=== PATIENT | female | born 1990 | race Caucasian/White ===

== ENCOUNTER → 2017-10-09 | Outpatient (CLI) | payer BC ==
[~2017-10-09] MED LIST: ACET-1256 PO
== END | disposition home or self-care (01) ==
LOC: C.PAPS 14:15
PROVIDERS: ATTEND Obstetrics & Gynecology
DX: Z34.01 Encounter for supervision of normal first pregnancy, first trimester (principal)

== ENCOUNTER → 2017-10-09 | Outpatient (CLI) | payer BC | END | disposition home or self-care (01) | LOC: C.LABSPEC 13:32 | PROVIDERS: ATTEND Obstetrics & Gynecology | DX: Z34.01 Encounter for supervision of normal first pregnancy, first trimester (principal) ==

== ENCOUNTER → 2017-10-16 | Outpatient (CLI) | payer BC ==
[2017-10-16 12:10] LABS: BASO % 0.1 %; BASO ABS # 0.01 K/uL (0-0.2); EOS % 1.3 %; EOS ABS # 0.13 K/uL (0-0.5); HEMOGLOBIN 12.4 g/dL (12.0-16.0); IG# 0.05 K/uL (0.00-0.02); LYMPH % 19.9 %; LYMPH ABS # 1.98 K/uL (1.2-3.4); MEAN CELL VOLUME 87.6 fL (80-100); MEAN CORPUSCULAR HEMOGLOBIN 30.2 pg (25-34); MEAN CORPUSCULAR HGB CONC 34.4 g/dl (32-36); MEAN PLATELET VOLUME 10.8 fL (7.4-10.4); MONO % 5.9 %; MONO ABS # 0.59 K/uL (0.11-0.59); NEUT % 72.3 %; NEUT ABS # 7.18 K/uL (1.4-6.5); PLATELET COUNT 210 K/uL (130-400); RED CELL DISTRIBUTION WIDTH CV 13.1 % (11.5-14.5); RED CELL DISTRIBUTION WIDTH SD 42.3 fL (36.4-46.3); WHITE BLOOD COUNT 9.94 K/uL (4.8-10.8)
== END | disposition home or self-care (01) ==
LOC: C.LAB1850 10:51
PROVIDERS: ATTEND Obstetrics & Gynecology
DX: Z34.01 Encounter for supervision of normal first pregnancy, first trimester (principal)

== ENCOUNTER → 2017-11-27 | Outpatient (CLI) | payer BC | END | disposition home or self-care (01) | LOC: C.LAB1850 10:13 | PROVIDERS: ATTEND Obstetrics & Gynecology | DX: Z34.02 Encounter for supervision of normal first pregnancy, second trimester (principal) ==

== ENCOUNTER → 2018-04-09 | Outpatient (CLI) | payer BC | END | disposition home or self-care (01) | LOC: C.LABSPEC 11:30 | PROVIDERS: ATTEND Obstetrics & Gynecology | DX: Z34.03 Encounter for supervision of normal first pregnancy, third trimester (principal) ==

== ENCOUNTER 2018-05-05 19:49 | Outpatient (CLI) | payer BC ==
[~2018-05-05] VITALS: Ht 165.1 cm; Wt 93.4 kg
[2018-05-05] MEDS ORDERED: SERT25TA PO (20:26)
[2018-05-05] MEDS ORDERED: INSU1INJ SC (20:26)
[2018-05-05] MEDS ORDERED: PRENTAB26 PO (20:26)
[2018-05-05] MEDS ORDERED: HMLI7525 SC (20:26)
[2018-05-05 20:27] VITALS: Ht 165.1 cm; Wt 93.4 kg
== END 2018-05-05 21:32 ==
LOC: C.OPB 19:49 → C.LD 19:49 → C.OPB 21:32
PROVIDERS: ATTEND Obstetrics & Gynecology
DX: O34.43 Maternal care for other abnormalities of cervix, third trimester (principal); O24.414 Gestational diabetes mellitus in pregnancy, insulin controlled; Z3A.40 40 weeks gestation of pregnancy

== ENCOUNTER 2019-06-27 07:26 | Inpatient (IN) ==
[2019-06-27] MEDS ORDERED: OXYTOCIN 30 UNITS/500 ML BAG IV PRN ×3 (07:30→16:46)
[2019-06-27 08:08] LABS: Hematocrit (blood only) 36.5 % (37-47); Hemoglobin 12.4 g/dL (12.0-16.0); Mean Corpuscular Hemoglobin 29.2 pg (25-34); Mean Corpuscular Volume 86.1 fL (80-100); Mean Platelet Volume 12.6 fL (7.4-10.4); Platelet Count 153 K/uL (130-400); RDW Coefficient of Variation 13.5 % (11.5-14.5); RDW Standard Deviation 42.6 fL (36.4-46.3); Red Blood Count 4.24 M/uL (4.2-5.4); White Blood Count 8.56 K/uL (4.8-10.8)
--- NOTE | 2019-06-27 08:40 | History & Physical Report ---
Date of Service June 27, 2019 Assessment & Plan (1) : 29-year-old here for induction of labor at 39 weeks 1 days, complicated by IDGDM, prior PPH, anxiety and depression, prior repaired rectovaginal fistula with a delivery in 2018. - GBS negative, Blood Type O+ - SVE: 12/07/-3 - FHT: Category 1 tracing - Induction with Oxytocin starting @ 2 milliunits/min. increasing by 2 milliunits/min. to a maximum of 30 milliunits/min. History of Present Illness Chief Complaint: IOL Primary Care Provider: Anna Marie Rodarte DO Dawn Nguyen is here for induction of labor. She did not have a Rodriguez placed yesterday because she was already 3 cm dilated. She did not feel any contractions at this time. Today she has just started feeling contractions that she describes as, "slightly painful with tightness all over her belly." She has not had any bleeding, LOF, or lost her mucus plug. She is feeling good movement. Partner is here with her. No questions or concerns this morning. is complicated by insulin dependant gestational diabetes mellitus. Patient has anxiety and depression managed with Sertraline. Patient also has a history of prior post hemorrhage, as well as a history of rectovaginal fistula after delivery in 2018, repaired. Allergies Allergy/AdvReac Type Severity Reaction Status Date / Time No Known Drug Allergies Allergy none Verified 06/27/19 07:54 Patient History Medical History Gestational diabetes (Acute) hemorrhage April 2018 following vaginal delivery & rectovaginal fistula. Given 2 PRBCs at that time. History of anxiety disorder History of depression Surgical History Rectovaginal fistula following vaginal delivery (April 2018) repaired (surgical) S/P wisdom tooth extraction Family History Mother Depression Grandmother (Maternal) Diabetes Father Hypertension Thyroid disease Dyslipidemia Grandfather (Paternal) Hypertension Thyroid disease Dyslipidemia Social History Preferred Language: Icelandic Communication Ability: Effective Beauty Operator Required: No Beliefs That Will Affect Care: None marital status: Current Living Situation: Family current occupational status: employed Other Information That Helps Us Care for You: No Feels Safe at Home: Yes Safety Concerns: Feels Safe At This Time Smoking Status: Never smoker Do You Dip or Chew Tobacco: No ; Second Hand Exposure: No ; Tobacco Cessation Education Requested by Patient: No Hx Alcohol Use: No Hx Substance Use: No Review of Systems Denies fever, chills, sweats Denies shortness of breath, difficulty breathing, chest pain, palpitations, chest pressure. Denies breast pain. Denies dysuria. Denies headache, RUQ, vision changes. Physical Exam Physical Exam: General: Alert, oriented. No acute distress. Cardiac: Regular rate and rhythm, no murmurs/rubs/gallops. Respiratory: Clear to auscultation anterior and posteriorly, no wheezes/rales/rhonchi. No increased work of breathing. Symmetrical chest rise. No respiratory distress. Abdomen: Soft, nontender. Bowel sounds present. Lower Extremities: No lower extremity edema or swelling. No deep calf pain. Marva's negative bilaterally. : SVE: 3cm/30%/-3 Results & Data Vital Signs (Past 12 Hours) Vital Signs Temp Pulse Resp BP 06/27/19 07:46 36.7 C 14 06/27/19 07:33 107 H 121/74 RPR: non reactive G/C: not detected HepBs antigen: negative HIV: negative Rubella: immune Monitoring External Monitor - Baseline rate: 140, moderate accelerations and accelerations - no late decelerations, no variable decelerations - category 1 tracing Tocodynamometer - contractions q1-2 minutes - approx. 100 MVU's Supervising Physician Co-Signing Physician Notes Patient seen and evaluated and agree with the above findings and plan. Will start induction with pitocin and AROM when able. Resident Activity Tracking Resident Involvement: Resident Care Provided Care Provided: OB Delivery (1) Weeks of gestation: 28 weeks Qualified Code(s): Z3A.28 - 28 weeks gestation of
[2019-06-27] MEDS: LACTATED RINGER'S 1,000 ML IV PRN ×2 (08:48→11:32)
[2019-06-27] MEDS ORDERED: BUPIVACAINE 0.25% 30 ML VIAL ONE (10:42)
[2019-06-27] MEDS ORDERED: fentaNYL 2MCG/ML ROPIV 1.25MG/ML 100 ML BAG EPI ONE (10:42)
[2019-06-27] MEDS ORDERED: fentaNYL citrate 100 MCG/2 ML VIAL ONE (10:42)
[2019-06-27] MEDS ORDERED: ePHEDrine sulfate 50 MG/ML AMP ONE (10:42)
--- NOTE | 2019-06-27 10:59 | Anesthesiology Consultation ---
Date of Service June 27, 2019 Assessment & Plan Chart Review Chart Review: Acceptable Risk for Surgery, Patient NOT seen in Pre Admission Testing and Acceptable Risk for Labor Epidural Consults Requested none ASA ASA3 Proposed Anesthesia Anesthesia Type: General and Labor Epidural Risk / Benefits Reviewed With: PT / POA / Parent / Guardian, Accepts Plan and Informed Consent Obtained History Surgery Operation Date: 06/27/19 09:10 Proposed Procedures p Section in LD - Bear Kan MD Height/Weight Height: 5 ft 5 in Weight: 94.801 kg Allergies Allergy/AdvReac Type Severity Reaction Status Date / Time No Known Drug Allergies Allergy none Verified 06/27/19 07:54 Medications Home Medications Medication Instructions Recorded Confirmed Last Taken sertraline 50 mg PO QPM 01/30/19 06/27/19 06/26/19 22:00 acetone (urine) test strips #25 ea 04/07/19 06/26/19 Unknown pen needle, diabetic 32 gauge x #30 ea 05/15/19 06/26/19 Unknown " insulin NPH isoph U-100 human 25 units SQ HS 06/25/19 06/27/19 06/25/19 22:00 [Humulin N NPH Insulin KwikPen] 21-iron fu-folic acid 1 tab PO DAILY 06/25/19 06/27/19 06/26/19 22:00 [ Complete] Active Medications Generic Name Dose Route Start Last Admin Trade Name Freq PRN Reason Stop Dose Admin Lactated Ringer's 1,000 mls @ 125 mls/hr 06/27/19 07:30 06/27/19 10:26 Lr IV 06/29/19 07:29 999 mls/hr .Q8H PRN Infusion L&D Protocol Protocol Oxytocin 30 units in 500 mls @ 4 mls/hr 06/27/19 08:59 06/27/19 10:26 Pitocin IV 06/29/19 08:58 0.24 units/hr .Q24H PRN 4 mls/hr Labor Induction/Augmentation Titration Protocol 0.24 UNITS/HR NPO Date Last Intake of Fluids: 06/27/19 Time Last Intake of Fluids: 06:30 Date Last Intake of Solids: 06/27/19 Time Last Intake of Solids: 06:30 Past Medical History Medical History Gestational diabetes (Acute) hemorrhage April 2018 following vaginal delivery & rectovaginal fistula. Given 2 PRBCs at that time. History of anxiety disorder History of depression Exercise / Class Metabolic Activity III < 4 Walking/Shop/Light housework Past Family History Family History Mother Depression Grandmother (Maternal) Diabetes Father Hypertension Thyroid disease Dyslipidemia Grandfather (Paternal) Hypertension Thyroid disease Dyslipidemia Past Surgical History Surgical History Rectovaginal fistula following vaginal delivery (April 2018) repaired (surgical) S/P wisdom tooth extraction Past Anesthesia History No Hx of Anesthesia Complications and No Family Hx of Anesthesia Complications History of PONV No Hx of PONV and No Hx of Motion Sickness Social History Smoking Status: Never smoker Do You Dip or Chew Tobacco: No Hx Alcohol Use: No Alcohol type: beer alcohol intake frequency: a few times a month Hx Substance Use: No substance use type: does not use Physical Exam Vital Signs Last Vital Signs Temp 36.7 C 06/27/19 07:46 Pulse 78 06/27/19 10:51 Resp 14 06/27/19 07:46 BP 126/75 06/27/19 10:26 Pulse Ox 99 06/27/19 10:51 Constitutional + obese ENMT Mouth: no dentition abnormality Thyromental Distance: < 3.5 Finger Breadths Mallampati Class: II Neck normal visual inspection and trachea midline; neck extension not limited Respiratory normal respiratory effort Auscultation: lungs clear to auscultation bilaterally Cardiovascular Rate/Rhythm: regular rate and regular rhythm Heart Sounds: no murmur Musculoskeletal Spine: lumbar spine normal to inspection; normal cervical ROM Neurologic moves all extremities Motor/Sensory: no sensory deficit Psychiatric Orientation: alert; + not oriented x 3 Testing Laboratory Results 06/27/19 07:46
[2019-06-27] MEDS ORDERED: NALOXONE HCL 0.4 MG/1 ML VIAL/CARP IV PRN (11:26)
[2019-06-27] MEDS ORDERED: ONDANSETRON INJ 2 MG/ML 2 ML VIAL IV PRN (11:26)
[2019-06-27] MEDS ORDERED: ePHEDrine sulfate 50 MG/ML AMP IV PRN (11:26)
[2019-06-27] MEDS ORDERED: PROMETHAZINE HCL 25 MG in SODIUM CHLORIDE 0.9% 50 ML IV PRN (11:26)
[2019-06-27] MEDS ORDERED: fentaNYL 2MCG/ML ROPIV 1.25MG/ML 100 ML BAG EPI PRN (11:26)
[2019-06-27] MEDS ORDERED: NALOXONE HCL 1 MG in SODIUM CHLORIDE 0.9% 1000ML 1,000 ML IV PRN (11:26)
[2019-06-27] MEDS ORDERED: NALBUPHINE HCL INJ 10 MG/ML AMP IV PRN (11:26)
[2019-06-27] MEDS ORDERED: DiphenhydrAMINE HCL 50 MG/ML VIAL IV PRN (11:26)
--- NOTE | 2019-06-27 11:52 | Labor Progress Brief Note ---
Date of Service June 27, 2019 Subjective Reason For Note: Routine Evaluation Assessment & Plan (1) 39 weeks gestation of : AROM bloody, Continue pitocin, Cat 1 tracing. (2) Insulin controlled gestational diabetes mellitus (GDM) in third trimester: Physical Exam Genitourinary: OB Exam Abdomen: + vertex Manual OB Exam: + cervical dilation 4 cm, + cervical effacement 50%, + station -2 and + amniotic fluid bloody OB Exam Monitor Tracing: + external FHT monitor used, + external uterine monitor used, + category I and + normal FHT variability; no late decelerations present and no variable decelerations Results & Data Vital Signs (Past 12 Hours) Vital Signs Temp Pulse Resp BP Pulse Ox 06/27/19 11:39 98 H 114/66 06/27/19 11:36 100 H 93 06/27/19 11:33 88 120/58 L 06/27/19 11:31 94 H 93 06/27/19 11:30 75 94 06/27/19 11:28 54 L 116/62 06/27/19 11:26 55 L 99/54 L 95 06/27/19 11:24 53 L 62/31 L 06/27/19 11:23 64 57/28 L 06/27/19 11:21 88 96 06/27/19 11:20 98 H 104/55 L 06/27/19 11:18 93 H 115/58 L 06/27/19 11:16 81 131/84 98 06/27/19 11:11 88 96 06/27/19 11:06 86 99 06/27/19 11:01 83 99 06/27/19 10:56 73 99 06/27/19 10:51 78 99 06/27/19 10:26 78 126/75 06/27/19 09:26 85 122/73 06/27/19 07:46 36.7 C 14 06/27/19 07:33 107 H 121/74
--- NOTE | 2019-06-27 15:08 | Labor Progress Brief Note ---
Date of Service June 27, 2019 Subjective Reason For Note: Routine Evaluation Current Pain Level(1-10): 0 Doing well, feeling contractions, good movement. Assessment & Plan (1) : 29-year-old here for induction of labor at 39 weeks 1 days, complicated by IDGDM, prior PPH, anxiety and depression, prior repaired rectovaginal fistula with a delivery in 2018. - Category 1 tracing - ROM at 11:15 AM - SVE: 50/-2 - GBS negative, Blood Type O+ - Induction with Oxytocin starting @ 2 milliunits/min. increasing by 2 milliunits/min. to a maximum of 30 milliunits/min. - pain well controlled with epidural. Weeks of gestation: 28 weeks Qualified Code(s): Z3A.28 - 28 weeks gestation of Physical Exam Physical Exam: General: Alert, oriented. No acute distress. Respiratory: No increased work of breathing. Symmetric chest rise. No respiratory distress. SVE: 50/-2 Fetus: - baseline rate: 155 BPM - variability: minimal - no late decelerations or variable decelerations - Category 1 tracing Results & Data Vital Signs (Past 12 Hours) Vital Signs Temp Pulse Resp BP Pulse Ox 06/27/19 15:00 36.7 C 93 H 18 114/70 06/27/19 14:56 96 H 118/72 06/27/19 14:53 96 H 97 06/27/19 14:38 105 H 97 06/27/19 14:24 94 H 20 110/66 06/27/19 14:23 99 H 98 06/27/19 14:09 93 H 125/83 06/27/19 14:08 91 H 98 06/27/19 13:54 85 131/78 06/27/19 13:53 98 H 98 06/27/19 13:45 20 06/27/19 13:40 75 128/76 06/27/19 13:38 79 99 06/27/19 13:24 75 18 122/73 06/27/19 13:23 78 98 06/27/19 13:11 79 121/59 L 06/27/19 13:08 76 98 06/27/19 12:55 81 111/57 L 06/27/19 12:54 36.7 C 82 22 114/55 L 06/27/19 12:53 88 98 06/27/19 12:40 96 H 24 114/62 06/27/19 12:38 96 H 95 06/27/19 12:24 96 H 109/57 L 06/27/19 12:23 92 H 96 06/27/19 12:10 93 H 16 116/63 06/27/19 12:08 94 H 96 06/27/19 11:54 91 H 128/71 06/27/19 11:53 88 20 95 06/27/19 11:39 98 H 114/66 06/27/19 11:36 100 H 93 06/27/19 11:33 88 20 120/58 L 06/27/19 11:31 94 H 93 06/27/19 11:30 75 94 06/27/19 11:28 54 L 116/62 06/27/19 11:26 55 L 99/54 L 95 06/27/19 11:24 53 L 62/31 L 06/27/19 11:23 64 57/28 L 06/27/19 11:21 88 96 06/27/19 11:20 98 H 104/55 L 06/27/19 11:18 93 H 115/58 L 06/27/19 11:16 81 131/84 98 06/27/19 11:11 88 96 06/27/19 11:06 86 99 06/27/19 11:01 83 99 06/27/19 10:56 73 99 06/27/19 10:51 78 99 06/27/19 10:50 36.7 C 20 06/27/19 10:26 78 126/75 06/27/19 09:26 85 122/73 06/27/19 07:46 36.7 C 14 06/27/19 07:33 107 H 121/74 Resident Activity Tracking Resident Involvement: Resident Care Provided Care Provided: OB Delivery
[2019-06-27] MEDS ORDERED: SUPERCREAM 0.870% 15 GM JAR EXT PRN (16:46)
[2019-06-27] MEDS ORDERED: ACETAMINOPHEN 325 MG TAB PO PRN (16:46)
[2019-06-27] MEDS ORDERED: BENZOCAINE 20% AER SPR 82.5 GM CAN EXT PRN (16:46)
[2019-06-27] MEDS ORDERED: DIPHTHERIA/TETANUS/PERTUSSIS 0.5 ML SYR/VIAL IM ONE (16:46)
[2019-06-27] MEDS ORDERED: HYDROCORTISONE ACETATE 25 MG SUPP PR PRN (16:46)
--- NOTE | 2019-06-27 17:15 | Anesthesia Procedure Note ---
Date of Service June 27, 2019 Anesthesia Post Epidural Note Vital Signs Vital Signs: Temp Pulse Resp BP Pulse Ox 36.7 C 92 H 18 139/74 97 06/27/19 15:00 06/27/19 17:01 06/27/19 16:46 06/27/19 17:01 06/27/19 16:38 Pain Intensity Left Buttock: Pain Intensity: 3 Notes Mental Status: alert / awake / arousable Nausea / Vomiting: adequately controlled Pain: adequately controlled Airway Patency, RR, SpO2: stable & adequate BP & HR: stable & adequate Hydration State: stable & adequate Neuraxial Anesthesia: was administered and sensory block is resolving Anesthetic Complications: no major complications apparent Epidural: Removed without complications and With tip intact
--- NOTE | 2019-06-27 18:14 | Delivery Summary ---
DATE OF OPERATION: 06/27/2019 PROCEDURE: Normal spontaneous vaginal delivery with second-degree laceration repair. SURGEON: Bear Kan MD. PREOPERATIVE DIAGNOSES: 1. Single intrauterine at 39 weeks 1 day gestational age. 2. Insulin-dependent gestational diabetes. 3. History of prior hemorrhage. 4. Anxiety and depression. 5. Prior rectovaginal fistula with repair after last delivery. POSTOPERATIVE DIAGNOSES: 1. Single intrauterine at 39 weeks 1 day gestational age. 2. Insulin-dependent gestational diabetes. 3. History of prior hemorrhage. 4. Anxiety and depression. 5. Prior rectovaginal fistula with repair after last delivery. 6. Status post delivery. ESTIMATED BLOOD LOSS: 300 mL DRAINS: None. FLUIDS: Continuous lactated ringer. URINE OUTPUT: Not measured. COMPLICATIONS: None. FINDINGS: Viable male with weight pending and Apgars of 8 and 9 at 1 and 5 minutes respectively. INDICATIONS: Ms. Nguyen is a 29-year-old G2, P1-0-0-1 admitted at 39 weeks 1 day gestational age for induction of labor for insulin-dependent gestational diabetes. At initial evaluation, the patient was found to be 3 cm dilated, 30% effaced, -3 station. She was started on oxytocin per regular protocol. She later underwent artificial rupture of membranes to clear fluid. Continue to progress in labor to complete-complete +2 station, at which time she did feel the urge to push. DESCRIPTION OF PROCEDURE: The patient progressed to 10 cm dilated, 100% effaced, +2 station, pushed over intact perineum over approximately 2-3 contractions to deliver a viable male infant with weight and Apgars as noted above. Head of the delivered in KIMBERLY position, rest into right transverse. No nuchal cord was noted. Body and shoulders quickly followed. was noted to be vigorous soon after delivery and a 1-minute delayed cord clamping was initiated. The cord was then double clamped and cut and remained on the maternal abdomen. Cord blood was then obtained. Attention was turned to deliver the placenta, which was delivered intact with 3-vessel cord with gentle cord traction. On inspection of the perineum, vagina, and cervix, there was noted to be second degree perineal laceration which was repaired with 3-0 Vicryl in the traditional crown stitch. Needle, sponge and instrument counts were correct at the completion of the case. Both mother and were stable in the immediate post-delivery period. I attest to the content of the Intraoperative Record and any orders documented therein. Any exception s are noted below.
[2019-06-27] MEDS: DOCUSATE SODIUM 100 MG CAP PO SCH (21:00)
[2019-06-27] MEDS ORDERED: SERTRALINE HCL 50 MG TABLET PO SCH (21:00)
[2019-06-27] MEDS: IBUPROFEN 600 MG TAB PO PRN (23:15)
[2019-06-28] MEDS: IBUPROFEN 600 MG TAB PO PRN (05:20)
--- NOTE | 2019-06-28 05:56 | Obstetrical Progress Note ---
Date of Service June 28, 2019 Assessment & Plan (1) : 29-year-old s/p VD @ 39 weeks 1 day, complicated by IDGDM, prior PPH, anxiety and depression, prior repaired rectovaginal fistula with a delivery in 2018. PPD#: 1 - GBS negative, Blood Type O+ - Feels well today. Eating well, voiding well, ambulating well. - Pain well controlled. - Routine care. - After discharge will have [address] Kan. - IDGDM, follow up evaluation for overt DM in 12 weeks Supervising Physician Co-Signing Physician Notes Patient seen and evaluated and agree with the above findings and plan. Stable for discharge pending Peds clearing baby Subjective Doing well, pain well controlled and described as crampy and improved with Motrin. Bottle feeding. Would like to be discharged today if possible. Review of Systems Review of Systems: Denies fever, chills, sweats Denies shortness of breath, difficulty breathing, chest pain, palpitations, chest pressure. Denies breast pain. Denies dysuria. Denies headache, RUQ, vision changes. Physical Exam Physical Exam: General: Alert, oriented. No acute distress. Cardiac: Regular rate and rhythm, no murmurs/rubs/gallops. Respiratory: Clear to auscultation anterior and posteriorly, no wheezes/rales/rhonchi. No increased work of breathing. Symmetrical chest rise. No respiratory distress. Abdomen: Soft, nontender, nondistended. Bowel sounds present. Uterus: Uterine fundus firm, palpable 2 cm below umbilicus. Lower Extremities: No lower extremity edema or swelling. No deep calf pain. Marva's negative bilaterally. Results & Data Vital Signs (Past 12 Hours) Vital Signs Temp Pulse Pulse Resp BP BP Pulse Ox 06/28/19 05:00 36.5 C 81 20 124/82 98 06/27/19 23:15 36.7 C 83 20 138/86 97 06/27/19 19:48 36.8 C 97 H 20 116/75 06/27/19 18:47 111 H 20 123/86 06/27/19 18:32 107 H 118/74 06/27/19 18:16 113 H 114/59 L 06/27/19 18:01 93 H 128/75 PG Care Time/CCT Total # of Minutes Spent Total Time Spent with Patient: Total time spent is greater than 50% in coordination of care (as documented) at patient's floor/unit and/or counseling patient: Resident Activity Tracking Resident Involvement: Resident Care Provided Care Provided: OB Delivery (1) Weeks of gestation: 28 weeks Qualified Code(s): Z3A.28 - 28 weeks gestation of
[2019-06-28 06:51] LABS: Hematocrit (blood only) 34.8 % (37-47); Hemoglobin 11.7 g/dL (12.0-16.0); Mean Corpuscular Hemoglobin 28.8 pg (25-34); Mean Corpuscular Hgb Conc 33.6 g/dL (32-36); Mean Corpuscular Volume 85.7 fL (80-100); Mean Platelet Volume 12.3 fL (7.4-10.4); Platelet Count 134 K/uL (130-400); RDW Coefficient of Variation 13.7 % (11.5-14.5); Red Blood Count 4.06 M/uL (4.2-5.4)
[2019-06-28] MEDS ORDERED: PRENATAL VITAMIN 1 TAB PO SCH (08:00)
[2019-06-28] MEDS: DOCUSATE SODIUM 100 MG CAP PO SCH (08:14)
[2019-06-28] MEDS ORDERED: bisacodyL 5 MG TABEC PO SCH (20:00)
[2019-06-29] MEDS ORDERED: bisacodyL 10 MG SUPP PR PRN (09:00)
== END 2019-06-28 19:55 | disposition home or self-care (01) | DRG 807 ==
LOC: 4S1 07:26 → EDSTATUS 08:50 → 4S2 19:55